=== PATIENT | female | born 1970 | race Caucasian/White ===

== ENCOUNTER 2019-02-26 12:02 | Emergency (ER) | payer OTHER ==
[~2019-02-26] VITALS: Ht 167.6 cm; Wt 89.8 kg
[2019-02-26] MEDS ORDERED: SYNTHROID112 MCG (12:07)
== END 2019-02-26 18:09 | disposition home or self-care (01) ==
LOC: ER 12:02
DX: N93.8 Other specified abnormal uterine and vaginal bleeding (principal)

== ENCOUNTER 2019-05-30 10:45 | Inpatient (IN) | payer OTHER ==
[~2019-05-30] VITALS: Ht 167.6 cm; Wt 90.7 kg
[~2019-05-30 10:45] MED LIST: SYNTHROID112 MCG
[2019-05-30] MEDS ORDERED: ZYRTEC10 M3 PO (12:28)
[2019-05-30] MEDS ORDERED: VIT D PO (12:28)
[2019-05-30] MEDS ORDERED: VYTORIN 10-201 EACH PO (12:28)
[2019-06-02] MEDS ORDERED: VITAMIN D350000 UNIT (09:39)
[2019-06-05] MEDS ORDERED: IBUPROFEN600 MG PO (10:48)
[2019-06-05] MEDS ORDERED: CODE1TAB37 PO (10:48)
== END 2019-06-05 12:16 | disposition home or self-care (01) | DRG 742 ==
LOC: O/R 06-02 05:00 → OB/GYN 06-02 05:00 → SURH 06-02 07:00 → O/R 06-02 10:45 → OB/GYN 06-02 12:16
PROVIDERS: ADMIT Obstetrics & Gynecology
PROC: 0UT70ZZ Resection of Bilateral Fallopian Tubes, Open Approach (ICD-10-PCS; 2019-06-02)
PROC: 0UT20ZZ Resection of Bilateral Ovaries, Open Approach (ICD-10-PCS; 2019-06-02)
PROC: 0WBN0ZX Excision of Female Perineum, Open Approach, Diagnostic (ICD-10-PCS; 2019-06-02)
PROC: 0UT90ZZ Resection of Uterus, Open Approach (ICD-10-PCS; principal; 2019-06-02 07:00)
DX: D25.1 Intramural leiomyoma of uterus (principal); N73.3 Female acute pelvic peritonitis; N72 Inflammatory disease of cervix uteri; N80.0 Endometriosis of uterus; D39.11 Neoplasm of uncertain behavior of right ovary; N93.8 Other specified abnormal uterine and vaginal bleeding